=== PATIENT | male | born 1935 | race Caucasian/White ===

== ENCOUNTER 2020-08-27 05:32 | Day surgery (SDC) | payer MEDICARE ==
[~2020-08-27] VITALS: Ht 170.2 cm; Wt 52.8 kg
[~2020-08-27 05:32] MED LIST: AZIT500T PO; CEFD300C37 PO; CEPH-375 PO; FLUC200T4 PO
[2020-08-27] MEDS ORDERED: CHLORHEXIDINE 15 ML UDC MM STA (06:03)
[2020-08-27 06:26] VITALS: BP 124/86
[2020-08-27] MEDS ORDERED: LACTATED RINGERS 1,000 ML IV SCH (06:30)
[2020-08-27] MEDS ORDERED: FENTANYL PF 250 MCG/5ML ONE (07:06)
[2020-08-27] MEDS ORDERED: BUPIVACAINE/PF 0.5% ONE (07:36)
[2020-08-27 07:44] LABS: ALANINE AMINOTRANSFERASE 10 U/L (12-78); ALBUMIN 2.2 g/dL (3.4-5.0); ANION GAP 8 mmol/L (5-15); CALCIUM 7.9 mg/dL (8.5-10.1); CHLORIDE 105 mmol/L (98-107); CREATININE 2.56 mg/dL (0.7-1.3)
[2020-08-27 07:47] LABS: ALKALINE PHOSPHATASE 77 U/L (45-117); BILIRUBIN,TOTAL 0.6 mg/dL (0.2-1.0); TOTAL PROTEIN 6.4 g/dL (6.4-8.2)
[2020-08-27] MEDS ORDERED: NEOMY/POLYMYXIN B GU IRR. 1 ML ONE (08:00)
[2020-08-27 08:01] LABS: BASOPHILS % (AUTO) 2 % (0-1); EOSINOPHILS % (AUTO) 0 % (1-7); LYMPHOCYTES % (AUTO) 8 % (22-44); MEAN CORPUSCULAR HEMOGLOBIN 29.2 pg (27.5-34.5); MEAN CORPUSCULAR HGB CONC 31.1 g/dL (33.2-36.2); MEAN PLATELET VOLUME 8.6 fL (7.4-10.4); MONOCYTES % (AUTO) 4 % (2-9); NEUTROPHILS % (AUTO) 87 % (42-75); PLATELET COUNT 247 x10^3/uL (130-400); RED BLOOD COUNT 2.62 x10^6/uL (4.38-5.82); RED CELL DISTRIBUTION WIDTH 23.3 % (9.4-14.8)
[2020-08-27] MEDS ORDERED: CEFAZOLIN 1,000 MG ONE (08:02)
[2020-08-27] MEDS ORDERED: PROPOFOL 10 MG/ML, 20ML ONE (08:05)
[2020-08-27] MEDS ORDERED: ONDANSETRON 2MG/ML, 2ML ONE (08:06)
[2020-08-27] MEDS ORDERED: ROCURONIUM 10MG/ML,5ML ONE (08:06)
[2020-08-27] MEDS ORDERED: BACITRACIN 50,000 UNIT ONE (08:26)
[2020-08-27] MEDS ORDERED: morphine SULFATE 10 MG/ML, 1ML IVPush PRN (08:30)
[2020-08-27] MEDS ORDERED: ACETAMINOPHEN 325 MG TABLET PO PRN (08:30)
[2020-08-27] MEDS ORDERED: hydrALAzine 20 MG/ML, 1ML IV PRN (08:30)
[2020-08-27] MEDS ORDERED: PROMETHAZINE 25 MG/ML, 1ML IVPush PRN (08:30)
[2020-08-27] MEDS ORDERED: LABETALOL 5MG/ML, 20ML IV PRN (08:30)
[2020-08-27] MEDS ORDERED: HYDROmorphone 1 MG/ML, 1ML INJ IVPush PRN (08:30)
[2020-08-27] MEDS ORDERED: OXYcodone 5 MG/5 ML ORAL.SOL UDC PO PRN (08:30)
[2020-08-27] MEDS ORDERED: FENTANYL PF 100 MCG/2ML IV PRN (08:30)
[2020-08-27] MEDS ORDERED: ONDANSETRON 2MG/ML, 2ML IVPush PRN (08:30)
[2020-08-27] MEDS ORDERED: FLUCONAZOLE 200 MG/100 ML 100 ML IV SCH ×2 (08:30→09:00)
[2020-08-27 08:53] LABS: MD MORPH REVIEW ONLY
[2020-08-27 08:54] LABS: <PLATELET ESTIMATE> ADEQUATE; <PLT MORPHOLOGY> NORMAL PLT MORPH; ANISOCYTOSIS 2+; HYPOCHROMIA 1+; OVALOCYTES 1+; POLYCHROMASIA 1+; STOMATOCYTES 1+; TEAR DROPS 1+
[2020-08-27 08:55] LABS: MICROCYTOSIS 1+
== END 2020-08-27 15:55 | disposition home or self-care (01) ==
LOC: OUT 05:32
PROVIDERS: ATTEND Student in an Organized Health Care Education/Training Program
DX: N21.0 Calculus in bladder (principal); N40.1 Benign prostatic hyperplasia with lower urinary tract symptoms; N13.8 Other obstructive and reflux uropathy; R33.8 Other retention of urine; N18.6 End stage renal disease; D64.9 Anemia, unspecified; Z20.822 Contact with and (suspected) exposure to COVID-19; Z79.899 Other long term (current) drug therapy; Z87.891 Personal history of nicotine dependence; Z99.2 Dependence on renal dialysis
CPT/HCPCS: 36415; 51050; 80053; 82360; 85025; 87635; 88300; 93005; J0690; J1450; J2405; J2704; J3010; J7120